=== PATIENT | female | born 1930 | race African-American/Black ===

== ENCOUNTER 2016-04-01 14:42 | Inpatient (IN) | payer MEDICARE ==
[~2016-04-01] VITALS: Ht 157.5 cm; Wt 40.8 kg
[2016-04-01 14:46] VITALS: BP 113/40
--- NOTE | 2016-04-01 15:06 | Emergency Room Report ---
History of Present Illness General Chief Complaint: Altered Mental Status Source: Medical Record, EMS Present Illness HPI 85 YO F sent from ?hospice care? for "gangrene" of left foot. Unknown history. Never been here before. EMS does not have additional info. There are no other family members here. PMD unknown, no PMD has called in advance advising us of patient coming. Allergies: Coded Allergies: SULFADIAZINE (Verified Allergy, Unknown, 04/01/16) SULFAMETHOXAZOLE (Verified Allergy, Unknown, 04/01/16) TRIMETHOPRIM (Verified Allergy, Unknown, 04/01/16) Uncoded Allergies: PENICILLIN (Allergy, Unknown, 04/01/16) Patient History Limited by: medical condition Past Medical History: unable to obtain Past Surgical History: unable to obtain Pertinent Family History: unable to obtain Nursing Documentation-[facility] Past Medical History: No History, Except For Review of Systems All Other Systems: limited - patient not speaking, ?baseline Physical Exam Vital Signs Date Time Temp Pulse Resp B/P Pulse Ox O2 Delivery O2 Flow Rate FiO2 04/01/16 14:36 98.2 98 18 113/40 97 Room Air Sp02 EP Interpretation: reviewed, normal General Appearance: normal inspection, well appearing, no apparent distress, non-toxic, cachetic, Chronically Ill Head: normocephalic, atraumatic Eyes: bilateral eye EOMI, bilateral eye PERRL ENT: normal ENT inspection, hearing grossly normal, normal voice Neck: normal inspection, full range of motion, supple, no bony tend Respiratory: normal inspection, lungs clear, normal breath sounds, no rhonchi, no respiratory distress, no retraction, no accessory muscle use, no wheezing Cardiovascular #1: regular rate, rhythm, no edema Gastrointestinal: normal inspection, normal bowel sounds, non tender, soft, no guarding, no hernia Genitourinary: no CVA tenderness Musculoskeletal: normal inspection, back normal, normal range of motion, Leatha' s Sign negative Neurologic: normal inspection, alert, responsive, 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 No sensation. Erosion of structure, almost mummified. bandage in place to lower extremity. Left foot: sensation intact but also hardened, black skin. No crepitus or erythema. Skin: normal inspection Lymphatic: normal inspection Procedures Critical Care Time Critical Care Time 45 minutes Care for 85 YO F with AMS, found to have sepsis of unknown source, possible left gangrenous foot infection. Also severly anemic. Hypotensive. VS significant for hypotension Patient ?altered, weak Care included sepsis order set for labs, 30cc/kg fluid resuscitation, initiation of IV antibiotics, tylenol PRN fever, Xray bilateral feet, Transfusion, CARMENZA bed Care may include administration of vasopressors started to support failing circulatory system, includes frequent re-exam, interpretation of lab studies and consultation with hospitalist/diabetes manager Dr Wolff and Hernández for approval here. 45 minutes of critical care time was spent with this patient not including time spent performing separately reportable procedures. Medical Decision Making Medicare Attestation I Emiliano Hinojosa MD hereby attest that the medical record entry for date of service, 02/24/16 accurately reflects signatures/notations that I made in my capacity as MD when I treated/diagnosed the above listed Medicare beneficiary. I attest that this information is true, accurate and complete to the best of my knowledge. I understand that any falsification, omission, or concealment of material fact may subject me to administrative, civil, or criminal liability. This patient warrants hospital admission for extreme of age and has a condition that cannot be treated as outpatient. Diagnostic Impression: Primary Impression: Infection of left foot Additional Impressions: Anemia Qualified Codes: D64.9 - Anemia, unspecified BRANDI (acute kidney injury) Hyperkalemia Sepsis Qualified Codes: A41.9 - Sepsis, unspecified organism Altered mental status Qualified Codes: R41.82 - Altered mental status, unspecified ER Course 85 YO F with ?acute vs chronic infection of left foot. VSS. Afebrile. DDx includes gangrene, PVD, osteomyelitis Likely chronic condition. VS stable, unlikely acute cellulitis. PLAN IV access, labs, bilateral foot xray to eval for gangrene, IV Vanc, admission EKG Diagnostic Results Rate: normal Rhythm: NSR ST Segments: no acute changes ASA given to the pt in ED: No Rhythm Strip Diag. Results EP Interpretation: yes Rate: 91 Rhythm: NSR, no PVC's, no ectopy Chest X-Ray Diagnostic Results EP Interpretation: Yes Findings: no consolidation, no effusion, no pneumothorax, no acute cardiopulmonary disease Number of Views: 1 Reevaluation Time: 15:43 Last Vital Signs Date Time Temp Pulse Resp B/P Pulse Ox O2 Delivery O2 Flow Rate FiO2 04/01/16 14:46 18 113/40 97 Room Air 04/01/16 14:36 98.2 98 Status: improved Reevaluation Impression After initial workup started, received call from Dr Scales at [facility] for this patient. PMD: HLD, osteoporosis, HTN, ?necrosis/gangrene of unspecified extremity. Admission Dec 2015 for sepsis d/t LLE gangrene. Also had fem/peroneal bypass on 2014, also of unknown extremity. Per EMS report that I just received, family stated AMS today. PLAN Will do CT head Hb 4.4. - will transfuse Labs: Leuks 21k; Na 133, K 5.2. SerumCr 2. Lactate 1.5, H&H 4.4/13.6 A: BRANDI? hyperkalemia - no EKG changes. Albuterol X2 given. Likely in setting of BRANDI vs BRANDI on CKD. Anemia, unknown source. Transfused 2U PRBC Leuks 21k, ?gangrene. IV Vanc given Xrays of bilateral feet show osteopenia. Unknown source of infection, likely feet. CT head negative for ICH. No mass or mass effect. Endorsed to Dr Scales at [facility] at 4pm. VSS. Unstable for transfer d/t critically low Hb. Reportedly was 6 in Nov and was transfused then as well. Endorsed to Dr Villegas to admit [facility] patient here at 523pm for CARMENZA bed. Disposition: ADMITTED INPATIENT Condition: Critical EMILIANO HINOJOSA M.D. Apr 01, 2016 15:06
[2016-04-01 15:37] LABS: MEAN CORPUSCULAR HEMOGLOBIN 25.8 PG (27.0-31.0); MEAN CORPUSCULAR HGB CONC 32.6 G/DL (32.0-36.0); MEAN CORPUSCULAR VOLUME 79 FL (80-99); MEAN PLATELET VOLUME 4.7 FL (6.5-10.1); RED BLOOD COUNT 1.73 M/UL (4.20-5.40); RED CELL DISTRIBUTION WIDTH 16.8 % (11.6-14.8); WHITE BLOOD COUNT 20.6 K/UL (4.8-10.8)
[2016-04-01 15:38] LABS: ALANINE AMINOTRANSFERASE 15 U/L (3-33); ALBUMIN/GLOBULIN RATIO 0.6 (1.0-2.7); ASPARTATE AMINO TRANSFERASE 23 U/L (5-40); CALCIUM 8.8 mg/dL (8.6-10.2); CARBON DIOXIDE 23 mEQ/L (20-30); CHLORIDE 95 mEQ/L (98-107); HEMOLYSIS 5; POTASSIUM 5.2 mEQ/L (3.4-4.9); SODIUM 133 mEQ/L (135-145); TOTAL PROTEIN 7.2 g/dL (6.6-8.7)
[2016-04-01 15:39] LABS: ANION GAP 15 (5-15)
[2016-04-01 15:46] LABS: PLATELET COUNT 1322 K/UL (150-450)
[2016-04-01 15:49] LABS: CKMB 5.8 ng/mL (< 3.8)
--- NOTE | 2016-04-01 16:02 | Diagnostic Imaging Report ---
Indication: Chest Pain Comparison: None A single view chest radiograph was obtained. Findings: No pulmonary vascular congestion identified. Retrocardiac density silhouetting out the left hemidiaphragm is noted. This may be chronic or acute. The heart is enlarged. The aorta is mildly enlarged consistent with atherosclerotic vascular disease. The bones are osteopenic. Impression: Retrocardiac density acuity indeterminate. Pneumonia or pleural effusion not excluded.
[2016-04-01 16:17] LABS: APPEARANCE,URINE SLIGHTLY CLOUDY; KETONES,URINE NEGATIVE (NEGATIVE); LEUKOCYTE ESTERASE ,URINE NEGATIVE (NEGATIVE); NITRITE,URINE NEGATIVE (NEGATIVE); PH,URINE 5 (4.5-8.0); PROTEIN,URINE 1+ (NEGATIVE); UROBILINOGEN,URINE NORMAL MG/DL (0.0-1.0)
[2016-04-01] MEDS ORDERED: Vancomycin 1gm inj IVPB ONE (16:21)
[2016-04-01 16:23] LABS: INR 1.1 (0.9-1.1); PROTHROMBIN TIME 10.7 SEC (9.30-11.50)
[2016-04-01 16:31] LABS: RBC,URINE 0-2 /HPF (0 - 2)
[2016-04-01 16:32] LABS: AMORPHOUS SEDIMENT,UR FEW /LPF; BACTERIA,URINE FEW /HPF; SQUAMOUS EPITHELIAL CELL,UR OCCASIONAL /LPF (NONE/OCC)
--- NOTE | 2016-04-01 16:42 | Diagnostic Imaging Report ---
Indication: Altered mental status Technique: Contiguous 5 mm thick transaxial imaging of the head obtained in a Siemens Sensation [address] scanner. Soft tissue and bone windows generated. Total Dose length Product (DLP): [address] Dose Index Volume (CTDIvol): 70.38 mGy Comparison: none Findings: Small focus of encephalomalacia noted within the left basal ganglia likely due to an old infarct. Mild ex vacuo dilatation of the anterior horn of the left lateral ventricle noted. There is some motion artifact which limits evaluation on this study. Mild generalized atrophy is noted. Periventricular low-attenuation is present. Basal cisterns appear normal. Bones are unremarkable. Impression: No acute intracranial bleed, mass effect or edema Mild atrophy generalized throughout the brain. 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
[2016-04-01 16:43] VITALS: BP 88/35
--- NOTE | 2016-04-01 16:46 | Diagnostic Imaging Report ---
Indication: Pain Comparison: None Findings: 2 views of the left foot were obtained. There is diffuse generalized osteopenia moderate to severe in degree. No obvious fracture or malalignment identified. Impression: No obvious acute injury
--- NOTE | 2016-04-01 16:46 | Diagnostic Imaging Report ---
Indication: Pain Comparison: None Findings: 2 views of the right foot were obtained. No definite fracture is identified. The bones are osteopenic which limits evaluation. Also the phalanges are not fully extended or well visualized on this study. Impression: No acute fracture appreciated. Generalized osteopenia
[2016-04-01 17:18] VITALS: BP 101/34
[2016-04-01 18:00] LABS: BAND NEUTROPHILS % (MANUAL) 3 % (0-8); EOSINOPHILS % (MANUAL) 1 % (0-3); LYMPHOCYTES % (MANUAL) 7 % (20-45); NEUTROPHILS % (MANUAL) 80 % (45-75); TOTAL CELLS COUNTED 100
[2016-04-01 18:01] LABS: ANISOCYTOSIS 2+; HYPOCHROMASIA 3+; MICROCYTES 2+; TARGET CELLS 1+
[2016-04-01 18:03] LABS: BASOPHILS % (MANUAL) 0 % (0-2); PLATELET ESTIMATE INCREASED; PLATELET MORPHOLOGY NORMAL
[2016-04-01] MEDS ORDERED: NKM (18:07)
[2016-04-01 19:17] VITALS: BP 117/46
[2016-04-01] MEDS ORDERED: Zolpidem 5mg tab ORAL PRN (20:00)
[2016-04-01] MEDS ORDERED: Milk of Magnesia 30ml Ud ORAL PRN (20:00)
[2016-04-02 00:20] VITALS: BP 114/73
[2016-04-02 04:12] VITALS: BP 118/50
[2016-04-02 08:00] VITALS: BP 149/67
[2016-04-02] MEDS ORDERED: Pantoprazole Inj IVP SCH (09:00)
[2016-04-02 11:54] LABS: MEAN CORPUSCULAR HEMOGLOBIN 28.3 PG (27.0-31.0); MEAN CORPUSCULAR HGB CONC 33.2 G/DL (32.0-36.0); MEAN CORPUSCULAR VOLUME 85 FL (80-99); MEAN PLATELET VOLUME 4.5 FL (6.5-10.1); RED BLOOD COUNT 4.36 M/UL (4.20-5.40); RED CELL DISTRIBUTION WIDTH 14.3 % (11.6-14.8)
[2016-04-02 11:57] LABS: PLATELET COUNT 1019 K/UL (150-450)
[2016-04-02 12:00] VITALS: BP 138/60
[2016-04-02] MEDS ORDERED: Aztreonam Inj 1 GM in D5W 55 ML IVPB ONE (12:00)
[2016-04-02 12:28] LABS: ANION GAP 20 (5-15); CALCIUM 8.4 mg/dL (8.6-10.2); CARBON DIOXIDE 18 mEQ/L (20-30); CHLORIDE 101 mEQ/L (98-107); CREATININE 1.6 mg/dL (0.5-0.9); CRP QUANT 22.3 mg/dL (< 0.5); HEMOLYSIS 0; LACTATE DEHYDROGENASE 217 U/L (135-230); POTASSIUM 4.2 mEQ/L (3.4-4.9); SODIUM 139 mEQ/L (135-145)
[2016-04-02 12:29] LABS: BAND NEUTROPHILS % (MANUAL) 2 % (0-8); BASOPHILS % (MANUAL) 0 % (0-2); EOSINOPHILS % (MANUAL) 0 % (0-3); HEMOLYSIS 0; IRON 13 ug/dL (37-145); LYMPHOCYTES % (MANUAL) 6 % (20-45); NEUTROPHILS % (MANUAL) 89 % (45-75); PLATELET ESTIMATE INCREASED; PLATELET MORPHOLOGY NORMAL; TOTAL CELLS COUNTED 100; TOTAL IRON BINDING CAPACITY 116 ug/dL (250-400)
[2016-04-02 12:31] LABS: ANISOCYTOSIS 1+; HYPOCHROMASIA 1+
[2016-04-02 12:34] LABS: POIKILOCYTOSIS 1+
[2016-04-02 12:35] LABS: PATH BLOOD SMEAR/OMC SENT TO PATHOLOGIST
[2016-04-02 12:38] LABS: FERRITIN 1083 ng/mL (13-150)
[2016-04-02 12:49] LABS: RETICULOCYTE COUNT 1.6 % (0.0-2.0)
[2016-04-02 13:03] LABS: ERYTHROCYTE SEDIMENTATION RATE 96 MM/HR (0-42)
--- NOTE | 2016-04-02 13:16 | Wound Care Consultation ---
Wound Assessment Wound Assessment #1: Wound Number: #1 Wound Present on Admission: Yes New Wound: No Status Change of Wound: No Wound Location Body Site Modif: mid Wound Location Body Site: sacral Wound Type: pressure ulcer Alejandro Test: Does not Alejandro Pressure Ulcer Stage: IV/unstageable Wound Thickness: Full Thickness Wound Length: 2.0 Wound Width: 2.0 Wound Depth: utd Percent of Wound [place]/Red: 20 Percent of Wound Bed Yellow/Wh: 80 Wound Drainage Description: Serosanguineous Wound Drainage Amount: Moderate Wound Drainage Odor: None/Absent Tissue Surrounding Wound: Macerated Wound General Appearance: Reddened, Draining, Necrotic Wound Assessment #2: Wound Number: #2 Wound Present on Admission: Yes New Wound: No Status Change of Wound: No Wound Location Body Site Modif: mid, upper Wound Location Body Site: sacral - site 2 Wound Type: pressure ulcer Alejandro Test: Does not Alejandro Pressure Ulcer Stage: III Wound Thickness: Full Thickness Wound Length: 1.0 Wound Width: 1.0 Wound Depth: 0.[address] [place]/Red: 100 Wound Drainage Description: Serosanguineous Wound Drainage Amount: Scant Wound Drainage Odor: None/Absent Tissue Surrounding Wound: Macerated Wound General Appearance: Reddened Wound Assessment #3: Wound Number: #3 Wound Present on Admission: Yes New Wound: No Status Change of Wound: No Wound Location Body Site Modif: right Wound Location Body Site: ischial tuberosity Wound Type: pressure ulcer Alejandro Test: Does not Alejandro Pressure Ulcer Stage: III Wound Thickness: Full Thickness Wound Length: 2.0 Wound Width: 2.0 Wound Depth: 0.[address] [place]/Red: 100 Wound Drainage Description: Serosanguineous Wound Drainage Amount: Scant Wound Drainage Odor: None/Absent Tissue Surrounding Wound: Macerated Wound General Appearance: Reddened Wound Assessment #4: Wound Number: #4 Wound Present on Admission: Yes New Wound: No Status Change of Wound: No Wound Location Body Site Modif: left Wound Location Body Site: trochanter Wound Type: pressure ulcer Alejandro Test: Does not Alejandro Pressure Ulcer Stage: deep tissue injury Wound Thickness: Full Thickness Wound Length: 6.0 Wound Width: 3.0 Wound Depth: utd Percent of Wound [place]/Red: 10 Percent of Wound Purple/Maroon: 90 Wound Drainage Amount: None Wound Drainage Odor: None/Absent Tissue Surrounding Wound: Erythemic Wound General Appearance: Reddened - scatttered maroon color to site. Wound Assessment #5: Wound Number: #5 Wound Present on Admission: Yes New Wound: No Status Change of Wound: No Wound Location Body Site Modif: left, lower Wound Location Body Site: leg - extending to entire foot Wound Type: other - gangrene. Alejandro Test: Does not Alejandro Wound Thickness: Full Thickness Percent of Wound [place]/Red: 5 Percent of Wound Bed Yellow/Wh: 5 Percent of Wound Black/Brown: 90 Wound Drainage Description: Serosanguineous Wound Drainage Amount: Scant Wound Drainage Odor: Foul Odor Tissue Surrounding Wound: Necrotic Wound General Appearance: Reddened, Necrotic Wound Assessment #6: Wound Number: #6 Wound Present on Admission: Yes New Wound: No Status Change of Wound: No Wound Location Body Site Modif: right Wound Location Body Site: toe - 2nd Wound Type: other - gangrene Alejandro Test: Does not Alejandro Wound Thickness: Full Thickness Percent of Wound Black/Brown: 100 Wound Drainage Amount: None Wound Drainage Odor: None/Absent Tissue Surrounding Wound: thick dry skin noted necrotic Wound General Appearance: Necrotic Wound Assessment #7: Wound Number: #7 Wound Present on Admission: Yes New Wound: No Status Change of Wound: No Wound Location Body Site Modif: right Wound Location Body Site: toe - 3rd Wound Type: other - gangrene Alejandro Test: Does not Alejandro Wound Thickness: Full Thickness Percent of Wound Black/Brown: 100 Wound Drainage Amount: None Wound Drainage Odor: None/Absent Tissue Surrounding Wound: thcik dry skin necrotic. Wound General Appearance: Necrotic Wound Comment #1 Mid Sacral Pressure Ulcer stage IV/Unstageable.(site 1) #2 Upper Sacral Pressure Ulcer stage III (site 2). #3 Right Ischial Tuberosity Pressure Ulcer stage III. #4 Left Trochanter Pressure Ulcer Deep Tissue Injury. #5 Left Lower leg extending to entire foot Gangrene. #6 Right 2nd toe entire toe Gangrene. #7 Right 3rd toe entire toe Gangrene. Recommendation. -FOLLOW UP WITH SOFTWARE PROJECT MANAGER. -Apply low air loss overlay mattress. -Optimize nutrition. -Turn and reposition. -Local wound care as ordered. -Offload affected areas for pressure relief. -Keep clean and dry. -Heel protectors if needed. -Assess and notify MD if any further changes are noted. EVELINE PAULINO Apr 02, 2016 13:15
[2016-04-02] MEDS ORDERED: Aspirin Baby 81mg ORAL SCH (16:00)
[2016-04-02 16:10] VITALS: BP 136/62
[2016-04-02] MEDS ORDERED: Tubing Blood Filter IV ONE (16:45)
[2016-04-02] MEDS ORDERED: D5NS 1000ml IV ONE (16:45)
[2016-04-02 20:00] VITALS: BP 123/69
[2016-04-02] MEDS ORDERED: D5W IVPB SCH (20:00)
[2016-04-02] MEDS ORDERED: AZTREONAM IVPB SCH (20:00)
--- NOTE | 2016-04-02 20:17 | Cardiology Report ---
APPROVED REPORT EKG Measurement Heart [id number] Normal sinus rhythm Normal ECG
--- NOTE | 2016-04-02 20:27 | History and Physical Report ---
DATE OF ADMISSION: 04/01/2016 REASON FOR ADMISSION: Profound anemia. HISTORY OF PRESENT ILLNESS: The patient is an 85-year-old female who has had prior admissions to [facility]. The patient has had questionable gangrene in the left foot. The patient is a poor historian. She was found to be profound anemic and was not found to be transferrable. PAST MEDICAL HISTORY: Difficult to obtain at the present. MEDICATIONS: Noted. ALLERGIES: Noted. REVIEW OF SYSTEMS: Difficult to obtain. PHYSICAL EXAMINATION: GENERAL: A well-developed female, chronically ill appearing. VITAL SIGNS: Stable. Blood pressure 180/58, pulse 87, respirations 17, O2 saturation 99%. HEENT: Fairly negative. NECK: Supple. LUNGS: Moderate breath sounds. CARDIAC: S1 and S2. Regular rate and rhythm. ABDOMEN: Soft and nontender. EXTREMITIES: Right foot hard black skin in the entire foot. The patient's left foot with sensation intact but also hardened with dark black skin. LABORATORY DATA: Reviewed IMPRESSION: 1. Profound anemia. 2. Significant gangrene. 3. Possible sepsis. 4. Acute kidney injury. 5. Hyperkalemia. RECOMMENDATION: 1. Transfuse total of four units. 2. Hematological evaluation for increased platelets. 3. Intravenous hydration. 4. Follow up laboratories. 5. Monitor renal function. 6. Followup hemoglobin and hematocrit. 7. Empiric antibiotics and transfer the patient to [facility] once stable. Prognosis appears to be poor. I agree with hospice care and management. Clement Wolff M.D. DR: Arsen JOB#: [id number] CC:
--- NOTE | 2016-04-02 20:48 | Consultation ---
DATE OF CONSULTATION: INFECTIOUS DISEASE CONSULTATION This consult is for coverage of Dr. Beltrán. PRIMARY ATTENDING PHYSICIAN: Clement Wolff M.D. REASON FOR CONSULTATION: Sepsis, left lower extremity gangrene. HISTORY OF PRESENT ILLNESS: The patient is a 85-year-old female admitted yesterday from home with altered mental status. The patient was found to have leukocytosis, severe anemia with hemoglobin 4.4, WBC 20.6. Seems to have acute renal failure. The patient suffers from peripheral vascular disease and left foot gangrene. The patient speaks but the information I get is very limited. PAST MEDICAL HISTORY: Osteopenia, peripheral vascular disease status bypass in 2014, left foot gangrene seems going for a while. ALLERGIES: The patient is allergic to penicillin, sulfadiazine, sulfamethoxazole, trimethoprim. MEDICATIONS: Protonix, sodium chloride, Tylenol, vancomycin, Mylanta, started on Zosyn but pharmacy put Zosyn on hold, started on aztreonam by me. SOCIAL HISTORY: The patient lives at home. No other history is obtainable. PHYSICAL EXAMINATION: VITAL SIGNS: Temperature 98.3, pulse 88, and blood pressure 118/50. GENERAL APPEARANCE: The patient seems to be thin. HEENT: Head and neck, pale conjunctivae. HEART: Regular. LUNGS: Clear. ABDOMEN: Soft and nontender. EXTREMITIES: Severe muscle atrophy and has gangrene in the left leg mostly dry. LABORATORY AND DIAGNOSTIC DATA: WBC 20.6, hemoglobin 4.4, hematocrit 13.6, and platelets . Sodium 133, potassium 5.2, chloride 95, bicarbonate 23, BUN 55, creatinine 2, glucose 123. Alkaline phosphatase 105. Albumin 2.7. . Chest x-ray showed retrocardiac density. CT scan of the head showed old infarct in basal ganglia. IMPRESSION: 1. Sepsis with leukocytosis. 2. Altered mental status. 3. Seems to have left foot gangrene. 4. The patient has multiple antibiotic allergy including sulfa drugs and penicillin. 5. Acute renal failure. 6. Peripheral vascular disease. 7. Severe anemia. 8. Thrombocytosis. RECOMMENDATION: Continue with vancomycin and azactam. No need vascular surgeon evaluation and likely amputation of left foot. At the end of my examination, I thank Dr. Wolff, for involving me in the care of this patient. Shimon Holman M.D. DR: Jarad JOB#: [id number] CC:
--- NOTE | 2016-04-02 20:59 | General Progress Note ---
Assessment/Plan Assessment/Plan GI Consult Dictated Discussed with family - not interested in any aggressive intervention, including endoscopy Will follow Thank you Apolinar Sanchez MD Subjective Allergies: Coded Allergies: SULFADIAZINE (Verified Allergy, Unknown, 04/01/16) SULFAMETHOXAZOLE (Verified Allergy, Unknown, 04/01/16) TRIMETHOPRIM (Verified Allergy, Unknown, 04/01/16) Uncoded Allergies: PENICILLIN (Allergy, Unknown, 04/01/16) Objective Last 24 Hour Vital Signs Date Time Temp Pulse Resp B/P Pulse Ox O2 Delivery O2 Flow Rate FiO2 04/02/16 20:00 97.8 100 18 123/69 97 Nasal Cannula 2.0 04/02/16 16:10 99.3 98 18 136/62 96 Nasal Cannula 2.0 04/02/16 16:00 97 04/02/16 12:00 97.9 98 22 138/60 97 Nasal Cannula 2.0 04/02/16 12:00 98 04/02/16 08:00 97.9 103 18 149/67 99 Nasal Cannula 2.0 04/02/16 08:00 95 04/02/16 08:00 97.9 103 18 149/67 95 Nasal Cannula 2.0 04/02/16 04:12 98.3 88 17 118/50 99 Nasal Cannula 2.0 04/02/16 04:00 84 04/02/16 00:20 97.7 92 18 114/73 98 Nasal Cannula 2.0 04/02/16 00:00 93 Intake and Output 04/01/16 04/02/16 19:00 07:00 Intake Total 0 ml 750 ml Output Total 450 ml Balance 0 ml 300 ml Intake Oral 0 ml Blood Product 750 ml Output Urine Total 450 ml Laboratory Tests 04/02/16 11:15: White Blood Count 17.0H, Red Blood Count 4.36, Hemoglobin 12.4#, Hematocrit 37.2 #, Mean Corpuscular Volume 85, Mean Corpuscular Hemoglobin 28.3, Mean Corpuscular Hemoglobin Concent 33.2, Red Cell Distribution Width 14.3, Platelet Count 1019*H, Mean Platelet Volume 4.5L, Neutrophils (%) (Auto) , Lymphocytes (% ) (Auto) , Monocytes (%) (Auto) , Eosinophils (%) (Auto) , Basophils (%) (Auto) , Differential Total Cells Counted 100, Neutrophils % (Manual) 89H, Lymphocytes % (Manual) 6L, Monocytes % (Manual) 3, Eosinophils % (Manual) 0, Basophils % ( Manual) 0, Band Neutrophils 2, Platelet Estimate IncreasedH, Platelet Morphology Normal, Hypochromasia 1+, Poikilocytosis 1+, Anisocytosis 1+, Erythrocyte Sedimentation Rate 96H, Reticulocyte Count 1.6, Hemoglobin A [ Pending], Hemoglobin A2 [Pending], Hemoglobin C [Pending], Hemoglobin F () [Pending], Hemoglobin S [Pending], Variant Hemoglobin [Pending], Hemoglobin Electrophoresis Interp [Pending], Hemoglobin Interpretation [Pending], Hemoglobin Solubility [Pending], Sodium Level 139, Potassium Level 4.2, Chloride Level 101, Carbon Dioxide Level 18L, Anion Gap 20H, Blood Urea Nitrogen 47H, Creatinine 1.6H, Estimat Glomerular Filtration Rate , Glucose Level 85, Calcium Level 8.4L, Iron Level 13L, Total Iron Binding Capacity 116L, Percent Iron Saturation 11L, Unsaturated Iron Binding 103L, Ferritin 1083H, Lactate Dehydrogenase 217, C-Reactive Protein, Quantitative 22.3H, Total Protein (PEP) [Pending], Albumin (PEP) [Pending], Globulin (PEP) [Pending], Albumin/Globulin Ratio [Pending], [id number] [Pending], Alpha-2- Globulins [Pending], Beta Globulins [Pending], Beta Gamma Globulin [Pending], PEP Abnormal Protein Bands [Pending], Protein Electrophoresis Interpret [Pending ], Vitamin B12 Level > 2000H, Folate [Pending] Height (Feet): 5 Height (Inches): 2.00 Weight (Pounds): 90 CHRISTIANEAPOLINAR VIRGEN Apr 02, 2016 20:59
[2016-04-02] MEDS ORDERED: NS 275ml ONE (21:59)
--- NOTE | 2016-04-03 03:37 | Consultation ---
DATE OF CONSULTATION: 04/02/2016 GASTROENTEROLOGY CONSULTATION: CONSULTING PHYSICIAN: Apolinar Sanchez M.D. CHIEF COMPLAINT: I was asked to see this patient for evaluation of anemia. HISTORY OF PRESENT ILLNESS: The patient is an unfortunate 85-year-old -[place] woman with gangrenous left foot, who was admitted to the hospital. The patient is unable to provide any history. Most of the care was discussed with the family, who stated that the patient is leaning towards comfort measures and does not want endoscopy and colonoscopy neither any aggressive intervention. PAST MEDICAL HISTORY: left foot gangrene. ALLERGIES: Noted. FAMILY HISTORY: Noncontributory. SOCIAL HISTORY: The patient is usually in the [facility] [place]. The patient at this time came to [facility]. REVIEW OF SYSTEMS: Unable to obtain. PHYSICAL EXAMINATION: GENERAL: The patient is a confused woman, seen in her room. HEENT: Normocephalic and atraumatic. Dentition is poor. Neck was supple. CHEST: Clear to auscultation. CARDIOVASCULAR: Regular rate. ABDOMEN: Soft. EXTREMITIES: Foot gangrene . LABORATORY DATA: Noted. ASSESSMENT: This patient does not have any evidence of melena or hematochezia and no gastroesophageal bleeding. She comes in with profound anemia, which may be due to poor production . The family does not want any aggressive intervention or wants any comfort measures. Apparently, the patient in the recent past, where she was more alert and oriented. Transfusions have been and are being given and this should be resolving the patient's anemia. The patient can be transferred to the [facility] [place] for further inpatient care. RECOMMENDATIONS: Per above discussion and per orders written in the chart. Thank you for asking me to participate in the care of this patient. Apolinar Sanchez M.D. DR: THU/as JOB#: [id number] CC:
[2016-04-03 09:59] LABS: FOLIC ACID 12.6 ng/mL (3.1-17.5)
--- NOTE | 2016-04-03 10:14 | General Progress Note ---
Assessment/Plan Status Narrative DOS 04/02/16 Assessment/Plan Assessment: 1. Anemia profound - potentially 2/2 chronic disease plus lab error (improved by 8 points) but only given 4 units of prbc 2. Leukocytosis 2/2 infection 3. Thrombocytosis 2/2 anemia (acute) 4. Acute kidney injury. 5. Gangrene of the feet - better RECOMMENDATION: 1. Transfuse total of four units in ER (04/02/16) 2. H/H has improved after above completed 3. Intravenous hydration. 4. JAK2 has been ordered, f/u as outpatient 5. Monitor renal function. 6. Followup h/h 7. Empiric antibiotics 8. Staff Thank you, Syed Henry MD Subjective Constitutional: Reports: no symptoms HEENT: Reports: no symptoms Cardiovascular: Reports: no symptoms Respiratory: Reports: no symptoms Gastrointestinal/Abdominal: Reports: poor appetite Genitourinary: Reports: no symptoms Neurologic/Psychiatric: Reports: no symptoms Endocrine: Reports: no symptoms Hematologic/Lymphatic: Reports: anemia Allergies: Coded Allergies: SULFADIAZINE (Verified Allergy, Unknown, 04/01/16) SULFAMETHOXAZOLE (Verified Allergy, Unknown, 04/01/16) TRIMETHOPRIM (Verified Allergy, Unknown, 04/01/16) Uncoded Allergies: PENICILLIN (Allergy, Unknown, 04/01/16) Subjective stable, no fevers or chills Objective Last 24 Hour Vital Signs Date Time Temp Pulse Resp B/P Pulse Ox O2 Delivery O2 Flow Rate FiO2 04/02/16 20:00 97.8 100 18 123/69 97 Nasal Cannula 2.0 04/02/16 20:00 100 04/02/16 16:10 99.3 98 18 136/62 96 Nasal Cannula 2.0 04/02/16 16:00 97 04/02/16 12:00 97.9 98 22 138/60 97 Nasal Cannula 2.0 04/02/16 12:00 98 Intake and Output 04/02/16 04/03/16 19:00 07:00 Intake Total 1750 ml 155 ml Output Total 350 ml 300 ml Balance 1400 ml -145 ml Intake Oral 450 ml 100 ml IV Total 1000 ml 55 ml Blood Product 300 ml Output Urine Total 350 ml 300 ml Laboratory Tests 04/02/16 11:15: White Blood Count 17.0H, Red Blood Count 4.36, Hemoglobin 12.4#, Hematocrit 37.2 #, Mean Corpuscular Volume 85, Mean Corpuscular Hemoglobin 28.3, Mean Corpuscular Hemoglobin Concent 33.2, Red Cell Distribution Width 14.3, Platelet Count 1019*H, Mean Platelet Volume 4.5L, Neutrophils (%) (Auto) , Lymphocytes (% ) (Auto) , Monocytes (%) (Auto) , Eosinophils (%) (Auto) , Basophils (%) (Auto) , Differential Total Cells Counted 100, Neutrophils % (Manual) 89H, Lymphocytes % (Manual) 6L, Monocytes % (Manual) 3, Eosinophils % (Manual) 0, Basophils % ( Manual) 0, Band Neutrophils 2, Platelet Estimate IncreasedH, Platelet Morphology Normal, Hypochromasia 1+, Poikilocytosis 1+, Anisocytosis 1+, Erythrocyte Sedimentation Rate 96H, Reticulocyte Count 1.6, Hemoglobin A [ Pending], Hemoglobin A2 [Pending], Hemoglobin C [Pending], Hemoglobin F () [Pending], Hemoglobin S [Pending], Variant Hemoglobin [Pending], Hemoglobin Electrophoresis Interp [Pending], Hemoglobin Interpretation [Pending], Hemoglobin Solubility [Pending], Sodium Level 139, Potassium Level 4.2, Chloride Level 101, Carbon Dioxide Level 18L, Anion Gap 20H, Blood Urea Nitrogen 47H, Creatinine 1.6H, Estimat Glomerular Filtration Rate , Glucose Level 85, Calcium Level 8.4L, Iron Level 13L, Total Iron Binding Capacity 116L, Percent Iron Saturation 11L, Unsaturated Iron Binding 103L, Ferritin 1083H, Lactate Dehydrogenase 217, C-Reactive Protein, Quantitative 22.3H, Total Protein (PEP) [Pending], Albumin (PEP) [Pending], Globulin (PEP) [Pending], Albumin/Globulin Ratio [Pending], Dsmir-3-[id number] [Pending], Alpha-2- Globulins [Pending], Beta Globulins [Pending], Beta Gamma Globulin [Pending], PEP Abnormal Protein Bands [Pending], Protein Electrophoresis Interpret [Pending ], Vitamin B12 Level > 2000H, Folate 12.6 Height (Feet): 5 Height (Inches): 2.00 Weight (Pounds): 90 General Appearance: lethargic EENT: TMs normal Neck: supple Cardiovascular: regular rhythm Respiratory/Chest: lungs clear Abdomen: normal bowel sounds Extremities: non-tender Edema: no edema noted Leg (L), no edema noted Leg (R) Edema: mild edema Neurologic: alert Skin: warm/dry Syed Henry Apr 03, 2016 10:14
[2016-04-03 10:18] LABS: A/G RATIO 0.5 (0.7-1.7); ABNORMAL PROTEIN BAND 1 Not Observed g/dL (Not Observed); ALBUMIN 2.1 g/dL (2.9-4.4); ALPHA-1 GLOBULIN 0.5 g/dL (0.0-0.4); ALPHA-2 GLOBULIN 0.8 g/dL (0.4-1.0); BETA GLOBULIN 0.9 g/dL (0.7-1.3); GAMMA GLOBULIN 1.9 g/dL (0.4-1.8); GLOBULIN, TOTAL 4.1 g/dL (2.2-3.9); TOTAL PROTEIN 6.2 g/dL (6.0-8.5)
--- NOTE | 2016-04-03 18:23 | Discharge Summary ---
Discharge Summary Hospital Course Date of Admission Apr 01, 2016 at 16:28 Date of Discharge Apr 02, 2016 at 22:00 Admitting Diagnosis AMS JACINTO Jeffery is a 85 year old female who was admitted on Apr 01, 2016 at 16 :28 for Altered Mental Status Hospital Course [id number] Discharge Discharge Disposition Patient was discharged to [facility] Discharge Diagnoses: Lena Moody NP Apr 03, 2016 18:23
--- NOTE | 2016-04-04 09:37 | Discharge Summary 2 SIG ---
DATE OF ADMISSION: 04/01/2016 DATE OF DISCHARGE: 04/02/2016 CONSULTANTS: 1. Apolinar Sanchez M.D. 2. Shimon Holman M.D. 3. Syed Henry M.D. BRIEF HOSPITAL COURSE: The patient is an 85-year-old female, who came from home, and had prior admissions to [facility], was transferred to [facility] for altered mental status. On evaluation, she was found to have profound anemia with hemoglobin of 4. She was unstable to be transferred and was admitted to [facility]. She was given 4 units of packed RBC blood transfusion. X-rays of bilateral foot showed osteopenia. Head CT showed no acute intracranial bleed, mass effect, or edema. Dr. Sanchez was consulted. The patient does not want any aggressive intervention and has a POLST that states DNR. Dr. Henry was consulted for evaluation of anemia and thrombocytosis. Thrombocytosis was secondary to anemia, which is acute. She was started also on IV hydration as creatinine was elevated secondary to acute kidney injury. She was started on antibiotics. Wound care was rendered. The patient was eventually discharged to [facility] after being stabilized. FINAL DIAGNOSES: 1. Gangrene of lower extremity. 2. Profound acute anemia, status post blood transfusion. 3. Acute kidney injury. 4. Possible sepsis. 5. Hyperkalemia. 6. Thrombocytosis secondary to anemia. 7. Leukocytosis secondary to infection. 8. Multiple pressure ulcers present on admission. Refer to wound care nurse documentation. Clement Wolff M.D. I have been assigned to dictate discharge summary on this account and I was not involved in the patient's management. Lena Moody N.P. DR: OVIDIO JOB#: [id number] CC: LASHONDA
[2016-04-06 13:09] LABS: HEMOGLOBIN A 89.4 % (94.0-98.0); HEMOGLOBIN A2 2.4 % (0.7-3.1); HGB S 8.2 % (0.0)
--- NOTE | 2016-04-07 12:08 | Consultation ---
DATE OF CONSULTATION: 04/01/2016 NOTE: VERY POOR AUDIO QUALITY HEMATOLOGY/ONCOLOGY CONSULTATION REFERRING PHYSICIAN: Clement Wolff M.D. REASON FOR CONSULTATION: Evaluation of thrombocytosis and severe anemia. HISTORY OF PRESENT ILLNESS: Dear Dr. Clement Wolff, The patient is a pleasant 85-year-old female with past medical history which is and history of left gangrene foot, however, most of the history is unavailable. The patient has a history significant for hypertension, necrosis, osteoporosis, hyperlipidemia, had been admitted in December 2015 for sepsis due to left lower extremity gangrene, has a history of femoral peroneal bypass in 2014, extremity. At this time, she was brought in by EMS due to altered mental status as per the family. The patient's at [facility] [place] [facility], I do not have any further information. Hematology service was consulted given the patient's hemoglobin is severely depressed approximately 4 and platelet count was about 19,000 and the patient had leukocytosis as well. PAST MEDICAL HISTORY: Hyperlipidemia, osteoporosis, hypertension, questionable necrosis . PAST SURGICAL HISTORY: Femoral peroneal bypass 2014. MEDICATIONS: Unknown. ALLERGIES: Penicillin, Bactrim, and trimethoprim. FAMILY HISTORY: Noncontributory. REVIEW OF SYSTEMS: Difficult to obtain due to mental status changes. PHYSICAL EXAMINATION: VITAL SIGNS: Temperature 98.3 degrees Fahrenheit, pulse 90, respiratory rate 12, blood pressure 113/80, and pulse oximetry 95% on room air. GENERAL: No acute distress. CARDIOVASCULAR: Regular rate. ABDOMEN: Soft and nontender. EXTREMITIES: There is 1+ edema. LABORATORY AND DIAGNOSTIC DATA: , creatinine of 2, potassium 5.2, sodium 132. Platelet count 13,000, . ASSESSMENT AND PLAN: 1. Anemia, severe. Potential bleed versus leukemia. We will need to evaluate with anemia workup as well as peripheral smear and transfuse. 2. . 3. with some infection. 4. Thrombocytosis. 5. . 6. Acute kidney injury. 7. . 8. Altered mental status. 9. Hypertension. 10. Monitor counts. 11. Obtain peripheral smear. 12. Hemoglobin ordered. 13. Continue antibiotics. 14. Pain control. 15. Evaluate for potential bleed. 16. Maintain hemoglobin above 7. 17. The patient does not need a level at this time, but might need a level. 18. If anemia does not improve, consider bone marrow biopsy to evaluate for leukemia versus lymphoma and we will send for LDH as well. 19. SPEP and UPEP have been ordered, as well as has been ordered. 20. GI prophylaxis. 21. DVT prophylaxis as contraindicated. 22. Discussed with staff. Thank you, Dr. Clement Wolff, for this kind referral. Please do not hesitate to contact me with any further questions. Syed Henry M.D. DR: LINDSAY JOB#: [id number] CC:
--- NOTE | 2016-04-11 17:27 | Diagnostic Imaging Report ---
APPROVED REPORT CPT Code: 32705 Present Symptoms Shortness of breath Comments: Gangrene on Lt foot RIGHT LEG: Venous imaging reveals a patent deep venous system. There is no evidence of thrombus within the femoral, popliteal or tibial segments. Doppler indicates normal spontaneous flow within these segments. The greater saphenous vein was not well visualized. LEFT LEG: Venous imaging reveals a patent deep venous system. There is no evidence of thrombus within the femoral, popliteal or proximal tibial segments. The greater saphenous vein is also within normal limits. Doppler indicates normal spontaneous flow within these segments. The distal tibial veins were not imaged, due to open wound. There is no evidence of acute deep vein thrombosis.
== END 2016-04-02 22:00 | disposition short-term general hospital (02) | DRG 811 ==
LOC: EDBD 14:42 → EMR 15:05 → EDBEDREQ 15:37 → 2W 16:28 → EDBEDREQ 16:28 → EDBEDREQSVC 16:28 → EDBEDREQTM 16:28 → EDBEDREQ 17:06 → EDBEDREQTM 17:12 → EDBEDREQSVC 17:12 → EDBEDREQ 17:13 → 2W 18:37
PROC: 30233N1 Transfusion of Nonautologous Red Blood Cells into Peripheral Vein, Percutaneous Approach (ICD-10-PCS; principal; 2016-04-01)
DX: D64.9 Anemia, unspecified (principal); A41.9 Sepsis, unspecified organism; N17.9 Acute kidney failure, unspecified; L89.154 Pressure ulcer of sacral region, stage 4; L89.213 Pressure ulcer of right hip, stage 3; E87.5 Hyperkalemia; M85.872 Other specified disorders of bone density and structure, left ankle and foot; M85.871 Other specified disorders of bone density and structure, right ankle and foot; D47.3 Essential (hemorrhagic) thrombocythemia; D72.829 Elevated white blood cell count, unspecified; Z66 Do not resuscitate; I73.9 Peripheral vascular disease, unspecified; Z88.0 Allergy status to penicillin; Z88.2 Allergy status to sulfonamides
CPT/HCPCS: 36415; 70450; 71010; 80048; 80053; 81003; 82553; 82607; 82728; 82746; 83020; 83540; 83550; 83605; 83615; 84165; 85007; 85025; 85044; 85060; 85610; 85651; 85730; 86140; 86850; 86900; 86901; 86920; 87040; 87081; 93005; 93970